=== PATIENT | female | born 1970 | race Caucasian/White ===

== ENCOUNTER 2022-07-09 11:33 | Emergency (ER) | payer MEDICARE, OTHER ==
[~2022-07-09] VITALS: Ht 157.5 cm; Wt 62.7 kg
[~2022-07-09 11:33] MED LIST: BUSP5TAB3 PO; POTA-192 PO; SERT25TA PO; SPIR100T5 PO
[2022-07-09] MEDS ORDERED: LIDOcaine 1% W/epiNEPHrine 1:100,000 20ml vial IJ ONE (12:45)
[2022-07-09 13:12] LABS: ALANINE AMINOTRANSFERASE 21 U/L (12-78); ALBUMIN 1.4 G/DL (3.4-5.0); ALBUMIN/GLOBULIN RATIO 0.2 (1.1-1.5); ALKALINE PHOSPHATASE 163 IU/L (46-116); ANION GAP 5 (8-16); ASPARTATE AMINO TRANSFERASE 74 U/L (10-37); BLOOD UREA NITROGEN 10 MG/DL (7-18); BUN/CREATININE RATIO 10.8 (10.0-20.0); CALCIUM 7.3 MG/DL (8.5-10.1); CHLORIDE 100 MMOL/L (99-107); CREATININE 0.93 MG/DL (0.40-0.90); GLUCOSE 91 MG/DL (70-104); POTASSIUM 3.4 MMOL/L (3.5-5.1); SODIUM 136 MMOL/L (135-145); TOTAL CARBON DIOXIDE 31.3 MMOL/L (24-32); TOTAL PROTEIN 7.5 G/DL (6.4-8.2); eGFR 63 ML/MIN
[2022-07-09] MEDS ORDERED: FURO40TA4 PO (13:56)
[2022-07-09] MEDS ORDERED: SPIR100T5 PO (13:56)
[2022-07-09] MEDS ORDERED: albumin (human) 25% 100 ML IV solution IV ONE ×2 (14:00→14:35)
[2022-07-09 15:15] VITALS: BP 108/78
== END 2022-07-09 15:20 | disposition left against medical advice (07) ==
LOC: ER 11:34
DX: R18.8 Other ascites (principal); K74.60 Unspecified cirrhosis of liver
CPT/HCPCS: 36415; 49083; 80053; 99285

== ENCOUNTER 2022-10-03 07:47 | Day surgery (SDC) | payer MEDICARE ==
[2022-10-03] VITALS (9 sets, daily range): BP systolic 84–104; BP diastolic 54–76; PULSE 80–95; RESP 16; TEMP 98.5; O2SAT 95–100
[~2022-10-03] VITALS: Ht 157.5 cm; Wt 64.4 kg
[~2022-10-03 07:47] MED LIST changes: +BUSP10TA11 PO; -BUSP5TAB3 PO; +CYAN500T71 PO; +FURO-149 PO; -POTA-192 PO; +POTA-208 PO; +RIFA550T PO; -SERT25TA PO; +SERT50TA PO
[2022-10-03] MEDS ORDERED: CYAN500T71 PO (08:33)
[2022-10-03] MEDS: albumin 25% 100mL bottle x 1 IV PRN ×2 (09:20→09:21)
== END 2022-10-03 10:40 | disposition home or self-care (01) ==
LOC: SSTAY O 07:47
PROVIDERS: ATTEND Radiology Vascular & Interventional Radiology
DX: K70.31 Alcoholic cirrhosis of liver with ascites (principal); G93.40 Encephalopathy, unspecified; D65 Disseminated intravascular coagulation [defibrination syndrome]; Z79.899 Other long term (current) drug therapy
CPT/HCPCS: 49083; C1729; J3490; P9047; A6258

== ENCOUNTER 2022-10-21 21:08 | Inpatient (IN) | payer MEDICARE, MEDICAID ==
[~2022-10-21 21:08] MED LIST changes: -FURO-149 PO; -RIFA550T PO
[2022-10-21 22:23] LABS: EOSINOPHILS # (AUTO) 0.1 X10'3 (0-0.9)
[2022-10-21 22:25] LABS: BASOPHILS # (AUTO) 0.1 X10'3 (0-0.2); BASOPHILS % (AUTO) 0.4 % (0-1); EOSINOPHILS % (AUTO) 0.5 % (0-6); HEMATOCRIT 30.5 % (35.0-45.0); HEMOGLOBIN 10.3 g/dl (12.0-16.0); LYMPHOCYTES # (AUTO) 2.1 X10'3 (1.1-4.8); LYMPHOCYTES % (AUTO) 16.9 % (21-51); MEAN CORPUSCULAR HEMOGLOBIN 32.5 PG (27.0-31.0); MEAN CORPUSCULAR HGB CONC 33.6 g/dL (33.0-36.5); MEAN CORPUSCULAR VOLUME 96.6 FL (78-98); MEAN PLATELET VOLUME 8.4 FL (7.4-10.4); MONOCYTES # (AUTO) 1.3 X10'3 (0-0.9); MONOCYTES % (AUTO) 10.3 % (2-12); NEUTROPHILS # (AUTO) 9.1 X10'3 (1.8-7.7); NEUTROPHILS % (AUTO) 71.9 % (42-75); PLATELET COUNT 196 X10'3 (140-440); RED BLOOD COUNT 3.16 X10'6 (4.20-5.60); RED CELL DISTRIBUTION WIDTH 17.8 % (11.5-14.5); WHITE BLOOD COUNT 12.7 X10'3 (4.5-11.0)
[2022-10-21 22:39] LABS: ALANINE AMINOTRANSFERASE 10 U/L (12-78); ALBUMIN 2.5 G/DL (3.4-5.0); ALKALINE PHOSPHATASE 97 IU/L (46-116); ANION GAP 8 (8-16); ASPARTATE AMINO TRANSFERASE 65 U/L (10-37); BILIRUBIN,TOTAL 9.3 MG/DL (0.1-1.0); BLOOD UREA NITROGEN 36 MG/DL (7-18); BUN/CREATININE RATIO 16.4 (10.0-20.0); CALCIUM 8.8 MG/DL (8.5-10.1); CHLORIDE 91 MMOL/L (99-107); PRO BRAIN NATRIURETIC PEPTIDE 815 PG/ML (0-125); SODIUM 129 MMOL/L (135-145); TOTAL CARBON DIOXIDE 30.4 MMOL/L (24-32); eGFR 23 ML/MIN
[2022-10-21 22:43] LABS: ALBUMIN/GLOBULIN RATIO 0.5 (1.1-1.5); GLUCOSE 99 MG/DL (70-104); TOTAL PROTEIN 7.9 G/DL (6.4-8.2)
[2022-10-21 22:45] LABS: POTASSIUM 2.8 MMOL/L (3.5-5.1)
[2022-10-21] MEDS ORDERED: normal saline 1000ML IV soln IVB ONE (23:35)
[2022-10-21] MEDS ORDERED: piperacillin/tazo 4.5gm/100ml 100 ML IV ONE (23:50)
[2022-10-22] VITALS (7 sets, daily range): BP systolic 85–131; BP diastolic 47–77; PULSE 85–122; RESP 14–19; TEMP 97.4–98.2; O2SAT 95–100
[2022-10-22 00:05] LABS: INR 1.7 INR; PROTHROMBIN TIME 17.7 SECONDS (9.0-12.0)
[2022-10-22 00:10] LABS: ACETAMINOPHEN < 2.0 UG/ML (10-30)
--- NOTE | 2022-10-22 01:29 | NUR ---
0005 pt transferred to rm 5 via gurney with all personal belongings for preparation of central line placement. Upon return to rm 10 housekeeping erased all previous record of vs taken from admission time until transfer. burning supervisor / MD notified. 0105 central line placement started x3 RN assisting MD. 0127 triple lumen CL pt tolerated procedure moderately well.
[2022-10-22] MEDS ORDERED: albumin (human) 25% 100ml IV 100 ML IV ONE (01:40)
[2022-10-22] MEDS ORDERED: lactulose 20gm/30ml cup PO ONE (01:40)
[2022-10-22 02:05] LABS: MAGNESIUM 1.8 MG/DL (1.5-2.4)
[2022-10-22] MEDS ORDERED: magnesium 4gm in 100ml NS 100 ML IV PRN (02:10)
[2022-10-22] MEDS ORDERED: magnesium Cl slow-release 64mg tablet PO PRN (02:10)
[2022-10-22] MEDS ORDERED: potassium Cl 40MEQ/1/2NS 520ml 520 ML IV PRN (02:10)
[2022-10-22] MEDS ORDERED: potassium Cl 20 mEq SR tablet PO PRN ×2 (02:10)
[2022-10-22] MEDS ORDERED: magnesium 2GM in 50ml NS 50 ML IV PRN (02:10)
[2022-10-22] MEDS ORDERED: ondansetron/PF 4mg/2ml inj IV PRN (02:10)
[2022-10-22] MEDS: normal saline 1000ml 1,000 ML IV SCH (02:43)
[2022-10-22] MEDS: potassium Cl 40MEQ/1/2NS 520ml 520 ML IV SCH ×2 (02:44→04:00)
[2022-10-22 05:47] LABS: BILIRUBIN,URINE MODERATE (Neg); CLARITY,URINE SLIGHTLY CLOUDY (Clear); GLUCOSE, URINE NEGATIVE (Neg); KETONES,URINE NEGATIVE (Neg); LEUKOCYTE ESTERASE ,URINE NEGATIVE (Neg); NITRITES, URINE NEGATIVE (Neg); OCCULT BLOOD,URINE MODERATE (Neg); PH,URINE 5.5 (4.8-8.0); PROTEIN,URINE TRACE mg/dl (Neg)
[2022-10-22 05:55] LABS: UA COLLECTION TYPE FOLEY CATH
[2022-10-22 05:56] LABS: COLOR,URINE DARK YELLOW (Yellow)
[2022-10-22 05:58] LABS: BACTERIA,URINE FEW /HPF (Neg); MUCUS STRANDS MODERATE /LPF (Neg); RENAL CELLS, URINE FEW /HPF; SQUAMOUS EPITHELIAL CELL,UR MODERATE /LPF (FEW)
[2022-10-22 05:59] LABS: COARSE GRANULAR CAST 0-3 /LPF (NEGATIVE)
[2022-10-22 06:00] LABS: TRANSITIONAL EPI CELLS,URINE FEW /HPF
[2022-10-22 06:24] LABS: URINE AMPHETAMINE SCREEN NEGATIVE (Neg); URINE BARBITUATE SCREEN NEGATIVE (Neg); URINE BENZODIAZEPINES SCREEN NEGATIVE (Neg); URINE CANNABINOID SCREEN NEGATIVE (Neg); URINE COCAINE SCREEN NEGATIVE (Neg); URINE METHADONE SCREEN NEGATIVE (Neg); URINE OPIATE SCREEN NEGATIVE (Neg); URINE PHENCYCLIDINE SCREEN NEGATIVE (Neg)
[2022-10-22 06:59] LABS: POTASSIUM 2.7 MMOL/L (3.5-5.1)
[2022-10-22] MEDS ORDERED: potassium Cl 40MEQ/1/2NS 520ml 520 ML IV ONE (07:40)
[2022-10-22] MEDS: K and/or MAG REPLACEMENT MC SCH ×2 (08:00→20:00)
[2022-10-22] MEDS: lactulose 20gm/30ml cup PO SCH ×3 (09:17→21:04)
[2022-10-22] MEDS: CefTRIAXone/D5W-Rocephin 1gm 50 ML IV SCH (15:38)
--- NOTE | 2022-10-22 18:30 | NUR ---
Patient in room PCU 3018. I have received report from SIVAN Carrion and had the opportunity to ask questions and assume patient care.
--- NOTE | 2022-10-22 18:40 | NUR ---
Problems reprioritized. Patient report given, questions answered & plan of care reviewed with Doris FINNEGAN.
[2022-10-23] VITALS (7 sets, daily range): BP systolic 93–108; BP diastolic 59–72; PULSE 107–119; RESP 14–26; TEMP 97.3–99.1; O2SAT 94–100
[2022-10-23] MEDS: lactulose 20gm/30ml cup PO SCH ×4 (02:28→19:49)
--- NOTE | 2022-10-23 06:09 | NUR ---
Problems reprioritized. Patient report given, questions answered & plan of care reviewed with SIVAN Carrion.
--- NOTE | 2022-10-23 06:22 | NUR ---
Patient in room PCU 3018. I have received report from Doris FINNEGAN and had the opportunity to ask questions and assume patient care.
[2022-10-23 06:24] LABS: BASOPHILS # (AUTO) 0.1 X10'3 (0-0.2); BASOPHILS % (AUTO) 0.5 % (0-1); EOSINOPHILS # (AUTO) 0.2 X10'3 (0-0.9); EOSINOPHILS % (AUTO) 1.6 % (0-6); HEMATOCRIT 26.3 % (35.0-45.0); HEMOGLOBIN 8.8 g/dl (12.0-16.0); LYMPHOCYTES # (AUTO) 2.7 X10'3 (1.1-4.8); LYMPHOCYTES % (AUTO) 20.3 % (21-51); MEAN CORPUSCULAR HEMOGLOBIN 32.5 PG (27.0-31.0); MEAN CORPUSCULAR HGB CONC 33.4 g/dL (33.0-36.5); MEAN CORPUSCULAR VOLUME 97.1 FL (78-98); MEAN PLATELET VOLUME 7.2 FL (7.4-10.4); MONOCYTES # (AUTO) 1.7 X10'3 (0-0.9); MONOCYTES % (AUTO) 12.7 % (2-12); NEUTROPHILS # (AUTO) 8.6 X10'3 (1.8-7.7); NEUTROPHILS % (AUTO) 64.9 % (42-75); PLATELET COUNT 105 X10'3 (140-440); RED BLOOD COUNT 2.71 X10'6 (4.20-5.60); RED CELL DISTRIBUTION WIDTH 17.9 % (11.5-14.5); WHITE BLOOD COUNT 13.2 X10'3 (4.5-11.0)
[2022-10-23 06:40] LABS: ALBUMIN 2.4 G/DL (3.4-5.0); ANION GAP 7 (8-16); BLOOD UREA NITROGEN 27 MG/DL (7-18); BUN/CREATININE RATIO 15.6 (10.0-20.0); CALCIUM 8.6 MG/DL (8.5-10.1); CHLORIDE 99 MMOL/L (99-107); CREATININE 1.73 MG/DL (0.40-0.90); GLUCOSE 106 MG/DL (70-104); POTASSIUM 3.5 MMOL/L (3.5-5.1); SODIUM 134 MMOL/L (135-145); TOTAL CARBON DIOXIDE 27.9 MMOL/L (24-32); eGFR 31 ML/MIN
[2022-10-23] MEDS: K and/or MAG REPLACEMENT MC SCH ×2 (08:00→20:00)
[2022-10-23] MEDS ORDERED: traMADol 50MG tablet PO PRN (08:30)
--- NOTE | 2022-10-23 13:27 | NUR ---
PRESSURE ULCER EDUCATION: DEFINITION: A pressure ulcer is an area of skin that breaks down when you stay in one position too long. The constant pressure against the skin reduces the blood flow to that area and the affected tissue dies. CAUSES: "Being bedridden or in a wheelchair "Fragile skin "Having a chronic condition, such as diabetes or vascular disease "Inability to move certain parts of your body without assistance "Older age "Incontinence of urine or stool SYMPTOMS: "A reddened area that DOES NOT turn white when pressed on - this can be the beginning of a pressure ulcer "A blister, deep sore or a crater - these can be advanced pressure ulcers FIRST AID: "Relieve the pressure on this area "Keep the area clean and dry "Call your primary doctor if you see any of the above symptoms "DO NOT massage the area "DO NOT use a donut shaped or ring shaped pillow- these actually interfere with the blood flow and cause complications PREVENTION: "Check for pressure ulcers everyday "Change position at least every two hours to relieve pressure "Use items that help relieve pressure- pillows, sheepskin, foam padding, and powders. "Keep skin clean and dry "Eat healthy well balanced meals "Exercise daily IF YOU SEE ANY OF THESE SYMPTOMS WHILE IN THE HOSPITAL - TELL YOUR NURSE IMMEDIATELY. IF YOU SEE ANY OF THESE SYMPTOMS WHILE AT HOME OR HAVE ANY QUESTIONS OR CONCERNS ABOUT PRESSURE ULCERS - CALL YOUR PRIMARY DOCTOR IMMEDIATELY. Addendum: 10/23/22 at 1328 by Edna Vides RN Amended: Links added.
[2022-10-23] MEDS: CefTRIAXone/D5W-Rocephin 1gm 50 ML IV SCH (15:31)
--- NOTE | 2022-10-23 18:20 | NUR ---
Patient in room PCU 3018. I have received report from SIVAN BENITES and had the opportunity to ask questions and assume patient care.
--- NOTE | 2022-10-23 18:29 | NUR ---
Problems reprioritized. Patient report given, questions answered & plan of care reviewed with Doris Puri RN.
[2022-10-23] MEDS: potassium Cl 20 mEq SR tablet PO SCH (18:34)
[2022-10-23] MEDS: busPIRone 5mg tablet PO SCH (19:49)
[2022-10-23] MEDS: normal saline 1000ml 1,000 ML IV SCH (19:51)
[2022-10-24] VITALS (7 sets, daily range): BP systolic 92–103; BP diastolic 54–71; PULSE 86–117; RESP 16–24; TEMP 97.5–98.9; O2SAT 96–100
[2022-10-24] MEDS: lactulose 20gm/30ml cup PO SCH ×2 (02:36→16:00)
--- NOTE | 2022-10-24 07:00 | NUR ---
Patient in room PCU 3018. I have received report from SIVAN Zaidi and had the opportunity to ask questions and assume patient care.
[2022-10-24 07:35] LABS: BASOPHILS % (AUTO) 0.3 % (0-1); EOSINOPHILS # (AUTO) 0.2 X10'3 (0-0.9); EOSINOPHILS % (AUTO) 2.3 % (0-6); HEMATOCRIT 25.2 % (35.0-45.0); HEMOGLOBIN 8.5 g/dl (12.0-16.0); LYMPHOCYTES # (AUTO) 1.8 X10'3 (1.1-4.8); LYMPHOCYTES % (AUTO) 19.3 % (21-51); MEAN CORPUSCULAR HEMOGLOBIN 32.7 PG (27.0-31.0); MEAN CORPUSCULAR HGB CONC 33.7 g/dL (33.0-36.5); MEAN CORPUSCULAR VOLUME 97.1 FL (78-98); MEAN PLATELET VOLUME 7.4 FL (7.4-10.4); MONOCYTES # (AUTO) 1.1 X10'3 (0-0.9); MONOCYTES % (AUTO) 11.8 % (2-12); NEUTROPHILS # (AUTO) 6.4 X10'3 (1.8-7.7); NEUTROPHILS % (AUTO) 66.3 % (42-75); PLATELET COUNT 113 X10'3 (140-440); RED CELL DISTRIBUTION WIDTH 17.8 % (11.5-14.5); WHITE BLOOD COUNT 9.6 X10'3 (4.5-11.0)
[2022-10-24] MEDS: K and/or MAG REPLACEMENT MC SCH ×2 (08:00→20:00)
[2022-10-24] MEDS: spironolactone 25 MG tablet PO SCH (08:00)
[2022-10-24 08:04] LABS: ALBUMIN 2.2 G/DL (3.4-5.0); ANION GAP 6 (8-16); BLOOD UREA NITROGEN 22 MG/DL (7-18); BUN/CREATININE RATIO 15.2 (10.0-20.0); CHLORIDE 97 MMOL/L (99-107); CREATININE 1.45 MG/DL (0.40-0.90); POTASSIUM 3.5 MMOL/L (3.5-5.1); SODIUM 130 MMOL/L (135-145); eGFR 38 ML/MIN
[2022-10-24 08:13] LABS: GLUCOSE 103 MG/DL (70-104)
[2022-10-24] MEDS: sertraline 50mg tablet PO SCH (10:20)
[2022-10-24] MEDS: potassium Cl 20 mEq SR tablet PO SCH ×3 (10:21→17:37)
[2022-10-24] MEDS: busPIRone 5mg tablet PO SCH ×2 (10:21→20:31)
[2022-10-24] MEDS: cyanocobalamin 500mcg tablet PO SCH (10:21)
[2022-10-24] MEDS: CefTRIAXone/D5W-Rocephin 1gm 50 ML IV SCH (16:00)
--- NOTE | 2022-10-24 18:40 | NUR ---
Problems reprioritized. Patient report given, questions answered & plan of care reviewed with LAURA Perla & SIVAN Quintana.
--- NOTE | 2022-10-24 19:07 | NUR ---
Assisting Minda CERTIFIED NURSE MIDWIFE with pt care, pt is resting quietly on bed eating dinner, tolerated well, no n/v.
[2022-10-24] MEDS: pregabalin 75mg capsule PO SCH (20:31)
[2022-10-25] MEDS: lactulose 20gm/30ml cup PO SCH ×2 (00:15→08:00)
[2022-10-25 02:00] VITALS: BP 95/56; PULSE 95; RESP 14; TEMP 98.2; O2SAT 96
[2022-10-25 06:00] VITALS: BP 100/71; PULSE 79; RESP 15; TEMP 98.2; O2SAT 100
--- NOTE | 2022-10-25 06:06 | NUR ---
Pt picked skin off [facility]ERTH and superior LFA, cleansed and band aid applied.
--- NOTE | 2022-10-25 06:20 | NUR ---
Patient in room U 3018. I have received report from SIVAN Perla and had the opportunity to ask questions and assume patient care. Addendum: 10/25/22 at 0847 by Tammy Prado RN LAURA Perla & SIVAN Quintana
[2022-10-25] MEDS: spironolactone 25 MG tablet PO SCH (08:00)
[2022-10-25] MEDS: K and/or MAG REPLACEMENT MC SCH (08:00)
[2022-10-25 08:11] LABS: ALBUMIN 2.2 G/DL (3.4-5.0); ANION GAP 7 (8-16); BLOOD UREA NITROGEN 20 MG/DL (7-18); BUN/CREATININE RATIO 15.6 (10.0-20.0); CALCIUM 8.2 MG/DL (8.5-10.1); CHLORIDE 97 MMOL/L (99-107); CREATININE 1.28 MG/DL (0.40-0.90); POTASSIUM 4.7 MMOL/L (3.5-5.1); SODIUM 129 MMOL/L (135-145); TOTAL CARBON DIOXIDE 24.6 MMOL/L (24-32); eGFR 44 ML/MIN
[2022-10-25 08:26] LABS: GLUCOSE 82 MG/DL (70-104)
[2022-10-25] MEDS: potassium Cl 20 mEq SR tablet PO SCH ×2 (09:00→12:23)
[2022-10-25 10:00] VITALS: BP 97/56; PULSE 88; RESP 16; TEMP 98; O2SAT 98
[2022-10-25 10:15] VITALS: RESP 16; O2SAT 98
[2022-10-25] MEDS: pregabalin 75mg capsule PO SCH (10:24)
[2022-10-25] MEDS: busPIRone 5mg tablet PO SCH (10:24)
[2022-10-25] MEDS: sertraline 50mg tablet PO SCH (10:24)
[2022-10-25] MEDS: cyanocobalamin 500mcg tablet PO SCH (10:24)
[2022-10-25 12:08] LABS: BASOPHILS % (AUTO) 0.3 % (0-1); EOSINOPHILS # (AUTO) 0.4 X10'3 (0-0.9); EOSINOPHILS % (AUTO) 3.3 % (0-6); HEMATOCRIT 24.2 % (35.0-45.0); HEMOGLOBIN 7.9 g/dl (12.0-16.0); LYMPHOCYTES # (AUTO) 1.7 X10'3 (1.1-4.8); LYMPHOCYTES % (AUTO) 14.3 % (21-51); MEAN CORPUSCULAR HEMOGLOBIN 32.1 PG (27.0-31.0); MEAN CORPUSCULAR HGB CONC 32.5 g/dL (33.0-36.5); MEAN CORPUSCULAR VOLUME 98.6 FL (78-98); MEAN PLATELET VOLUME 7.9 FL (7.4-10.4); MONOCYTES # (AUTO) 1.4 X10'3 (0-0.9); MONOCYTES % (AUTO) 11.6 % (2-12); NEUTROPHILS # (AUTO) 8.6 X10'3 (1.8-7.7); NEUTROPHILS % (AUTO) 70.5 % (42-75); PLATELET COUNT 144 X10'3 (140-440); RED BLOOD COUNT 2.45 X10'6 (4.20-5.60); RED CELL DISTRIBUTION WIDTH 17.6 % (11.5-14.5); WHITE BLOOD COUNT 12.2 X10'3 (4.5-11.0)
[2022-10-25] MEDS ORDERED: LYR75C PO (12:57)
[2022-10-25] MEDS ORDERED: LACT10SO7 PO (12:57)
[2022-10-25] MEDS ORDERED: TRAM50TA2 PO (13:00)
--- NOTE | 2022-10-25 15:05 | NUR ---
DC inst provided to pt. IV DC'd, tip intact. All belongings sent w/pt. WC to cab.
== END 2022-10-25 15:04 | disposition home or self-care (01) | DRG 442 ==
LOC: ER 21:08 → ED HOLD 10-22 02:11 → PCU 3S 10-22 07:23
PROVIDERS: ADMIT Internal Medicine; ATTEND Internal Medicine
PROC: 05HY33Z Insertion of Infusion Device into Upper Vein, Percutaneous Approach (ICD-10-PCS; principal; 2022-10-21)
DX: K76.82 Hepatic encephalopathy (principal); E44.0 Moderate protein-calorie malnutrition; E87.1 Hypo-osmolality and hyponatremia; N17.9 Acute kidney failure, unspecified; F10.21 Alcohol dependence, in remission; K70.30 Alcoholic cirrhosis of liver without ascites; D64.9 Anemia, unspecified; E87.6 Hypokalemia; K72.10 Chronic hepatic failure without coma; D69.6 Thrombocytopenia, unspecified; R32 Unspecified urinary incontinence; N18.9 Chronic kidney disease, unspecified; F32.A Depression, unspecified; K76.9 Liver disease, unspecified; M79.604 Pain in right leg; M79.605 Pain in left leg; R15.9 Full incontinence of feces; Z59.00 Homelessness unspecified; Z79.899 Other long term (current) drug therapy; Z99.3 Dependence on wheelchair
CPT/HCPCS: 36415; 71045; 80048; 80053; 80305; 80329; 81001; 82140; 83605; 83735; 83880; 84132; 84145; 84484; 85025; 85610; 87040; 87081; 87088; 93005; 97161; 97530; 99285; A5200; A6212; A6213; A6250; A6258; C1758; G0378; J0696; J2543; J3480; J7030; P9047

== ENCOUNTER 2022-12-02 14:29 | Emergency (ER) | payer MEDICARE, MEDICAID ==
[~2022-12-02] VITALS: Ht 157.5 cm; Wt 58.0 kg
[~2022-12-02 14:29] MED LIST changes: +LACT10SO7 PO; +LYR75C PO; -POTA-208 PO; +TRAM50TA2 PO
[2022-12-02 14:32] VITALS: BP 110/74; PULSE 138; RESP 16; TEMP 98.4; O2SAT 95
== END 2022-12-02 23:37 | disposition left against medical advice (07) ==
LOC: ER 14:30
DX: R06.02 Shortness of breath (principal); Z53.21 Procedure and treatment not carried out due to patient leaving prior to being seen by health care provider
CPT/HCPCS: 99281

== ENCOUNTER 2022-12-04 11:17 | Emergency (ER) | payer MEDICARE, MEDICAID ==
[~2022-12-04] VITALS: Ht 157.5 cm; Wt 58.2 kg
[2022-12-04 11:23] VITALS: TEMP 97.3
--- NOTE | 2022-12-04 12:27 | NUR ---
PT COMPLAINS OF TIGHTNESS AND ABD PAIN FROM [facility]IT[facility],TOLD TO BE TAPPED ONCE A WEEK, DID NOT WAIT FOR REFERRAL STATED LAST VISIT, WAS VERY TIRED. PAIN 5/10 ABD, NO N/V/D, DENIES ETOH USE NOW.
--- NOTE | 2022-12-04 12:52 | NUR ---
Gave report to nurse taking over.
[2022-12-04 13:05] LABS: BASOPHILS % (AUTO) 0.4 % (0-1); EOSINOPHILS % (AUTO) 0.5 % (0-6); HEMATOCRIT 26.4 % (35.0-45.0); LYMPHOCYTES # (AUTO) 1.1 X10'3 (1.1-4.8); LYMPHOCYTES % (AUTO) 14.5 % (21-51); MEAN CORPUSCULAR HEMOGLOBIN 30.5 PG (27.0-31.0); MEAN CORPUSCULAR HGB CONC 33.9 g/dL (33.0-36.5); MEAN CORPUSCULAR VOLUME 90.1 FL (78-98); MEAN PLATELET VOLUME 8.3 FL (7.4-10.4); MONOCYTES # (AUTO) 0.7 X10'3 (0-0.9); MONOCYTES % (AUTO) 9.5 % (2-12); NEUTROPHILS # (AUTO) 5.8 X10'3 (1.8-7.7); NEUTROPHILS % (AUTO) 75.1 % (42-75); PLATELET COUNT 135 X10'3 (140-440); RED BLOOD COUNT 2.94 X10'6 (4.20-5.60); RED CELL DISTRIBUTION WIDTH 15.9 % (11.5-14.5); WHITE BLOOD COUNT 7.7 X10'3 (4.5-11.0)
[2022-12-04 13:17] LABS: INR 1.1 INR; PROTHROMBIN TIME 11.9 SECONDS (9.0-12.0)
[2022-12-04 13:20] LABS: ALANINE AMINOTRANSFERASE 6 U/L (12-78); ALBUMIN 1.7 G/DL (3.4-5.0); ALBUMIN/GLOBULIN RATIO 0.3 (1.1-1.5); ALKALINE PHOSPHATASE 93 IU/L (46-116); ANION GAP 7 (8-16); ASPARTATE AMINO TRANSFERASE 29 U/L (10-37); BILIRUBIN,TOTAL 1.2 MG/DL (0.1-1.0); BLOOD UREA NITROGEN 14 MG/DL (7-18); BUN/CREATININE RATIO 13.1 (10.0-20.0); CHLORIDE 92 MMOL/L (99-107); CREATININE 1.07 MG/DL (0.40-0.90); POTASSIUM 3.4 MMOL/L (3.5-5.1); SODIUM 125 MMOL/L (135-145); TOTAL CARBON DIOXIDE 25.7 MMOL/L (24-32); TOTAL PROTEIN 7.7 G/DL (6.4-8.2); eCRCL 49 ML/MIN; eGFR 54 ML/MIN
[2022-12-04 13:23] LABS: GLUCOSE 104 MG/DL (70-104)
[2022-12-04] MEDS ORDERED: LIDOcaine 1% W/epiNEPHrine 1:100,000 20ml vial SQ ONE (13:40)
[2022-12-04] MEDS ORDERED: albumin (human) 25% 100 ML IV solution IV ONE (14:25)
[2022-12-04] MEDS ORDERED: morphine 2 MG/ML inj. syringe IV ONE (14:45)
[2022-12-04] MEDS ORDERED: SPIR100T PO (15:19)
[2022-12-04] MEDS ORDERED: LACT10SO3 PO (15:19)
[2022-12-04] MEDS ORDERED: FURO40TA4 PO (15:19)
[2022-12-04] MEDS ORDERED: POTA-192 PO (15:21)
[2022-12-04 16:29] VITALS: BP 106/70; PULSE 120; RESP 18; O2SAT 99
== END 2022-12-04 16:40 | disposition home or self-care (01) ==
LOC: ER 11:18
DX: K70.31 Alcoholic cirrhosis of liver with ascites (principal); Z79.899 Other long term (current) drug therapy
CPT/HCPCS: 36415; 49083; 80053; 82140; 85025; 85610; 96374; 96375; 99285; A6258; J2270; J3490; P9047

== ENCOUNTER 2022-12-25 15:15 | Emergency (ER) | payer MEDICARE, MEDICAID ==
[~2022-12-25] VITALS: Ht 158.8 cm; Wt 59.1 kg
[~2022-12-25 15:15] MED LIST changes: +FURO40TA4 PO; +LACT10SO3 PO; +POTA-192 PO; +SPIR100T PO
[2022-12-25 15:17] VITALS: RESP 20; TEMP 97.7
[2022-12-25 17:45] LABS: BASOPHILS % (AUTO) 0.7 % (0-1); EOSINOPHILS # (AUTO) 0.1 X10'3 (0-0.9); EOSINOPHILS % (AUTO) 1.1 % (0-6); HEMATOCRIT 24.7 % (35.0-45.0); HEMOGLOBIN 8.3 g/dl (12.0-16.0); LYMPHOCYTES # (AUTO) 1.8 X10'3 (1.1-4.8); LYMPHOCYTES % (AUTO) 25.6 % (21-51); MEAN CORPUSCULAR HEMOGLOBIN 29.3 PG (27.0-31.0); MEAN CORPUSCULAR HGB CONC 33.4 g/dL (33.0-36.5); MEAN PLATELET VOLUME 8.4 FL (7.4-10.4); MONOCYTES # (AUTO) 0.7 X10'3 (0-0.9); MONOCYTES % (AUTO) 9.9 % (2-12); NEUTROPHILS # (AUTO) 4.3 X10'3 (1.8-7.7); NEUTROPHILS % (AUTO) 62.7 % (42-75); PLATELET COUNT 100 X10'3 (140-440); RED BLOOD COUNT 2.81 X10'6 (4.20-5.60); RED CELL DISTRIBUTION WIDTH 16.2 % (11.5-14.5); WHITE BLOOD COUNT 6.9 X10'3 (4.5-11.0)
[2022-12-25 18:13] LABS: ALANINE AMINOTRANSFERASE 10 U/L (12-78); ALBUMIN 1.8 G/DL (3.4-5.0); ALBUMIN/GLOBULIN RATIO 0.3 (1.1-1.5); ALKALINE PHOSPHATASE 115 IU/L (46-116); ANION GAP 8 (8-16); ASPARTATE AMINO TRANSFERASE 33 U/L (10-37); BILIRUBIN,TOTAL 1.3 MG/DL (0.1-1.0); BLOOD UREA NITROGEN 9 MG/DL (7-18); BUN/CREATININE RATIO 7.8 (10.0-20.0); CALCIUM 8.3 MG/DL (8.5-10.1); CHLORIDE 94 MMOL/L (99-107); CREATININE 1.15 MG/DL (0.40-0.90); POTASSIUM 3.2 MMOL/L (3.5-5.1); SODIUM 129 MMOL/L (135-145); TOTAL CARBON DIOXIDE 26.9 MMOL/L (24-32); TOTAL PROTEIN 7.9 G/DL (6.4-8.2); eCRCL 46 ML/MIN; eGFR 50 ML/MIN
[2022-12-25 18:18] LABS: GLUCOSE 90 MG/DL (70-104); LIPASE 19 U/L (16-77)
[2022-12-25] MEDS ORDERED: potassium chloride 10mEq ER tablet PO STA (20:11)
[2022-12-25] MEDS ORDERED: albumin (human) 25% 100 ML IV solution IV ONE ×2 (20:15→21:55)
[2022-12-25 20:16] LABS: BILIRUBIN,URINE NEGATIVE (Neg); CLARITY,URINE SLIGHTLY CLOUDY (Clear); COLOR,URINE YELLOW (Yellow); GLUCOSE, URINE NEGATIVE (Neg); KETONES,URINE NEGATIVE (Neg); LEUKOCYTE ESTERASE ,URINE SMALL (Neg); NITRITES, URINE NEGATIVE (Neg); OCCULT BLOOD,URINE TRACE-INTACT (Neg); PH,URINE 5.5 (4.8-8.0); PROTEIN,URINE NEGATIVE (Neg); UROBILINOGEN,URINE 0.2 E.U/dL (0.2-1.0)
[2022-12-25 20:27] LABS: UA COLLECTION TYPE NON-SPECIFIED
[2022-12-25 20:30] LABS: APTT 35 SECONDS (22-32); INR 1.1 INR; PROTHROMBIN TIME 11.9 SECONDS (9.0-12.0)
[2022-12-25 20:31] LABS: MAGNESIUM 1.7 MG/DL (1.5-2.4)
[2022-12-25 20:36] LABS: BACTERIA,URINE 1+ /HPF (Neg); MUCUS STRANDS MODERATE /LPF (Neg); SQUAMOUS EPITHELIAL CELL,UR MANY /LPF (FEW); TRANSITIONAL EPI CELLS,URINE FEW /HPF
[2022-12-25 20:38] LABS: RBC,URINE 0-2 /HPF (0-2); WBC,URINE 0-4 /HPF (0-4)
--- NOTE | 2022-12-25 23:40 | NUR ---
10L out from MD shawn aware.
[2022-12-26 00:18] VITALS: BP 95/70; PULSE 110; O2SAT 99
--- NOTE | 2022-12-26 00:28 | NUR ---
pt is a&o x4, pt was given discharge instructions and a cab. OK to discharge
== END 2022-12-26 00:29 | disposition home or self-care (01) ==
LOC: ER 15:16
DX: K72.90 Hepatic failure, unspecified without coma (principal)
CPT/HCPCS: 36415; 49083; 80053; 81001; 83690; 83735; 85025; 85610; 85730; 96374; 96376; 99291; P9047

== ENCOUNTER 2023-03-09 07:33 | Day surgery (SDC) | payer MEDICARE, MEDICAID ==
[~2023-03-09] VITALS: Ht 157.5 cm; Wt 59.8 kg
[~2023-03-09 07:33] MED LIST changes: -BUSP10TA11 PO; +BUSP10TA3 PO; +COR3.125T PO; +CYAN-104 PO; -CYAN500T71 PO; -LACT10SO3 PO; -LACT10SO7 PO; +LACT10SO88 PO; -LYR75C PO; +PANT40TA54 PO; -POTA-192 PO; +POTA-206 PO; +SERT-433 PO; -SERT50TA PO; -SPIR100T PO; -TRAM50TA2 PO
[2023-03-09] MEDS ORDERED: albumin 25% 100mL bottle x 1 IV PRN (07:55)
[2023-03-09 08:00] VITALS: RESP 15
[2023-03-09] MEDS ORDERED: CARV3.122 PO (08:02)
[2023-03-09 09:30] VITALS: BP 113/80; PULSE 116; RESP 20; O2SAT 94
[2023-03-09 09:46] VITALS: BP 98/68; PULSE 96; RESP 18; O2SAT 95
[2023-03-09 10:05] VITALS: BP 107/68; PULSE 99; RESP 14; O2SAT 94
[2023-03-09 14:43] VITALS: BP 139/85; PULSE 96; RESP 15; TEMP 98.1; O2SAT 96
== END 2023-03-09 11:00 | disposition home or self-care (01) ==
LOC: SSTAY O 07:33
PROVIDERS: ATTEND Radiology Diagnostic Radiology
DX: R18.8 Other ascites (principal); R14.0 Abdominal distension (gaseous); N18.9 Chronic kidney disease, unspecified; K72.10 Chronic hepatic failure without coma; K76.82 Hepatic encephalopathy; Z98.84 Bariatric surgery status; Z98.890 Other specified postprocedural states; Z79.899 Other long term (current) drug therapy
CPT/HCPCS: 49083; C1729; P9047; A6258; A6449

== ENCOUNTER 2023-04-13 08:35 | Day surgery (SDC) | payer MEDICARE, MEDICAID ==
[~2023-04-13] VITALS: Ht 157.5 cm; Wt 57.4 kg
[~2023-04-13 08:35] MED LIST changes: +CARV3.122 PO; -COR3.125T PO
[2023-04-13 08:50] VITALS: BP 121/81; PULSE 80; RESP 12; TEMP 97.4; O2SAT 99
[2023-04-13] MEDS ORDERED: PANT-47 PO (09:04)
[2023-04-13] MEDS ORDERED: albumin 25% 100mL bottle x 1 IV PRN (09:05)
== END 2023-04-13 09:50 | disposition home or self-care (01) ==
LOC: SSTAY O 08:35
PROVIDERS: ATTEND Radiology Vascular & Interventional Radiology
DX: R18.8 Other ascites (principal); Z53.8 Procedure and treatment not carried out for other reasons; R14.0 Abdominal distension (gaseous); K74.60 Unspecified cirrhosis of liver; K72.10 Chronic hepatic failure without coma; N18.9 Chronic kidney disease, unspecified; K76.82 Hepatic encephalopathy; Z98.84 Bariatric surgery status; Z98.890 Other specified postprocedural states; Z79.899 Other long term (current) drug therapy
CPT/HCPCS: 76705; A6258; A6449